=== PATIENT | female | born 1990 | race Caucasian/White ===

== ENCOUNTER 2016-11-14 13:37 | Emergency (ER) | payer OTHER ==
[~2016-11-14 13:37] MED LIST: BACTRIM DS1 TAB PO; BENADRYL25 MG PO; BUSPIRONE HCL10 MG PO; CITALOPRAM HYDR40 MG PO; CYMBALTA60 MG PO; DEPO-PROVER150 MG/ML; FLONASE AL50 MCG/ACT IN; HYDROCORTISONE0.5 % TOP; IBUPROFEN600 MG PO; IMITREX100 MG PO; KEFLEX750 MG PO; MELATONIN1 TA1 PO; NAPROXEN DR500 MG PO; NEURONTIN300 MG PO; ROXICODONE5 MG PO; SMZ-TMP DS1 TAB PO; TYLENOL325 MG PO; VITAMIN B COMPLE1; ZANAFLEX4 M1 PO; ZYRTEC-D ALLERG1 TAB PO
--- NOTE | 2016-11-14 17:19 | DIAGNOSTIC IMAGING REPORT ---
PROCEDURE: CT ABDOMEN/PELVIS W/O CONTRAST INDICATION: Left flank pain and hematuria. TECHNIQUE: Noncontrast axial images with sagittal and coronal reformations. COMPARISON: None. FINDINGS: ABDOMEN: Kidneys and ureters are normal. No evidence of urinary tract calculus or obstruction. Gallbladder, liver, spleen, pancreas, and aorta are normal. Bowel pattern is normal, including appendix. PELVIS: Uterus and adnexal structures are normal. Bilateral surgical tubal ligation clips. No evidence of free fluid. IMPRESSION: 1. Status post tubal ligation. 2. Normal kidneys and ureters. No evidence of urinary tract obstruction or calculus. 3. Otherwise negative CT abdomen and pelvis. 4. Findings discussed with ISAIAH Mann. All CT scans at this facility use dose modulation, iterative reconstruction, and/or weight-based dosing when appropriate to reduce radiation dose to as low as reasonably achievable.
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
--- NOTE | 2016-11-14 17:22 | ED ORDER SUMMARY ---
..... Patient: CONSUELO KEVIN OrderSheet [facility] VisitID: [id number] [address] [place] [address] 26y, F Registration Date/Time: 11/14/2016 ORDER SHEET Weight: 99.7 kg Allergies: Abilify, Amitriptyline, Baclofen, Certain paper tapes, Compazine, Food allergies to apple, banana, avocado, Haldol, morphine, Seasonal, Tramadol GENERAL ORDERS: UA-Culture if indicated Urgent (14:10 11/14/2016 EKoroleva P.A.-C) (Ack 14:11 LNations ER Tech1) (14:27 ALawrence ER Tech1) Urine Urgent (14:10 11/14/2016 EKoroleva P.A.-C) (Ack 14:11 LNations ER Tech1) (14:27 ALawrence ER Tech1) CT Abd/Pel wo Cont Urgent (14:46 11/14/2016 EKoroleva P.A.-C) (Ack 14:52 LNations ER Tech1) (16:10 RFay) CBC w Diff Urgent (14:46 11/14/2016 EKoroleva P.A.-C) (Ack 14:52 LNations ER Tech1) (17:05 ALawrence ER Tech1) CMP Urgent (14:46 11/14/2016 EKoroleva P.A.-C) (Ack 14:53 LNations ER Tech1) (17:05 ALawrence ER Tech1) MEDICATION ORDERS: Percocet PO 5/325 mg (HIGH ALERT MEDICATION, NOW) (14:47 11/14/2016 EKoroleva P.A.-C) (15:10 EBonham) IV FLUIDS: ORDER SHEET NOTES: [Electronically signed by Earline Sahu (17:29 11/14/2016)] [Electronically signed by Cee Segura P.A.-C (18:42 11/14/2016)] [Electronically locked/signed by Earline Sahu (17:29 11/14/2016)]
--- NOTE | 2016-11-14 17:22 | ED ORDER SUMMARY ---
..... Patient: CONSUELO KEVIN OrderSheet [facility] VisitID: [id number] [address] [place] [address] 26y, F Registration Date/Time: 11/14/2016 ORDER SHEET Weight: 99.7 kg Allergies: Abilify, Amitriptyline, Baclofen, Certain paper tapes, Compazine, Food allergies to apple, banana, avocado, Haldol, morphine, Seasonal, Tramadol GENERAL ORDERS: UA-Culture if indicated Urgent (14:10 11/14/2016 EKoroleva P.A.-C) (Ack 14:11 LNations ER Tech1) (14:27 ALawrence ER Tech1) Urine Urgent (14:10 11/14/2016 EKoroleva P.A.-C) (Ack 14:11 LNations ER Tech1) (14:27 ALawrence ER Tech1) CT Abd/Pel wo Cont Urgent (14:46 11/14/2016 EKoroleva P.A.-C) (Ack 14:52 LNations ER Tech1) (16:10 RFay) CBC w Diff Urgent (14:46 11/14/2016 EKoroleva P.A.-C) (Ack 14:52 LNations ER Tech1) (17:05 ALawrence ER Tech1) CMP Urgent (14:46 11/14/2016 EKoroleva P.A.-C) (Ack 14:53 LNations ER Tech1) (17:05 ALawrence ER Tech1) MEDICATION ORDERS: Percocet PO 5/325 mg (HIGH ALERT MEDICATION, NOW) (14:47 11/14/2016 EKoroleva P.A.-C) (15:10 EBonham) IV FLUIDS: ORDER SHEET NOTES: [Electronically signed by Earline Sahu (17:29 11/14/2016)] [Electronically signed by Cee Segura P.A.-C (18:42 11/14/2016)] [Electronically locked/signed by Earline Sahu (17:29 11/14/2016)]
--- NOTE | 2016-11-14 18:42 | ED MED RECONCILIATION SUMMARY ---
Patient: CONSUELO KEVIN Medication Reconciliation Report [facility] VisitID: [id number] [address] [place] [address] 26y, F Registration Date/Time: 11/14/2016 Weight: 99.7 kg Height/Length: 67 in. BMI: 34.5 ALLERGIES: Abilify, Amitriptyline, Baclofen, Certain paper tapes, Compazine, Food allergies to apple, banana, avocado, Haldol, morphine, Seasonal, Tramadol The patient's Home Medications are listed below: THE FOLLOWING MEDICATIONS NEED TO BE RECONCILED: BusPIRone HCl Oral Citalopram Hydrobromide Oral Cymbalta Oral Gabapentin Oral TiZANidine HCl Oral The source(s) of the original Home Medication information: Not obtained. The following Medications were given to the patient in the Emergency Department: Percocet [PO] PO 1 tab, administered: 11/14/2016 3:10:00 PM The following Medications were prescribed to the patient: Hydrocodone/APAP 5mg / 325mg: take 1 orally every 6 hours as needed for pain -- Cee Segura, PJinAJin-C
--- NOTE | 2016-11-14 18:42 | ED MAR SUMMARY ---
..... Medication Administration Record [facility] [address] [place] [address] Patient: CONSUELO KEVIN Visit ID: [id number] 26y, F Weight: 99.7 kg Height/Length: 67 in BMI: 34.5 ALLERGIES: Abilify, Amitriptyline, Baclofen, Certain paper tapes, Compazine, Food allergies to apple, banana, avocado, Haldol, morphine, Seasonal, Tramadol Given 15:10 11/14/2016 Earline Sahu, Medication Administered: PERCOCET [PO] (OXYCODONE-ACETAMINOPHEN), Dose: 1 tab 5/325 mg Tablets PO. Medication Ordered: Percocet PO 5/325 mg (HIGH ALERT MEDICATION, NOW).
--- NOTE | 2016-11-14 18:42 | ED MED RECONCILIATION SUMMARY ---
Patient: CONSUELO KEVIN Medication Reconciliation Report [facility] VisitID: [id number] [address] [place] [address] 26y, F Registration Date/Time: 11/14/2016 Weight: 99.7 kg Height/Length: 67 in. BMI: 34.5 ALLERGIES: Abilify, Amitriptyline, Baclofen, Certain paper tapes, Compazine, Food allergies to apple, banana, avocado, Haldol, morphine, Seasonal, Tramadol The patient's Home Medications are listed below: THE FOLLOWING MEDICATIONS NEED TO BE RECONCILED: BusPIRone HCl Oral Citalopram Hydrobromide Oral Cymbalta Oral Gabapentin Oral TiZANidine HCl Oral The source(s) of the original Home Medication information: Not obtained. The following Medications were given to the patient in the Emergency Department: Percocet [PO] PO 1 tab, administered: 11/14/2016 3:10:00 PM The following Medications were prescribed to the patient: Hydrocodone/APAP 5mg / 325mg: take 1 orally every 6 hours as needed for pain -- Cee Segura, PJinAJin-C
--- NOTE | 2016-11-14 18:42 | ED DISCHARGE INSTRUCTIONS ---
Patient: CONSUELO KEVIN General Instructions [facility] VisitID: [id number] [place] [address] 26y, F Registration Date/Time: 11/14/2016 Abdominal pain of unknown cause. Acute left flank pain INSTRUCTIONS Drink plenty of fluids. Warnings: Further evaluation is necessary. Prescription Medications: Hydrocodone/APAP 5mg / 325mg: take 1 orally every 6 hours as needed for pain Follow-up: Follow up with your doctor in three. ADDITIONAL INFORMATION Symptoms With Uncertain Cause [Adult] Based on the exam and any tests that were performed today, the exact cause of your symptoms is not certain. While your condition does not seem serious, the signs of a serious problem may take more time to appear. Therefore, it is important for you to watch for any new symptoms or worsening of your condition.Follow up with your doctor or this facility, as directed.A repeat physical exam or additional testing at a later time may uncover a cause for your symptoms that is not evident today. Home Care: Resume your usual activities and diet when this feels comfortable to do so. Follow Up with your doctor, or as advised by our staff.Contact your doctor sooner if your symptoms do not begin to improve in the next few days. [NOTE: If you had an x-ray, CT scan, ultrasound, or ECG (electrocardiogram), it will be reviewed by a specialist. You will be notified of any new findings that may affect your care.] Get Prompt Medical Attention if any of the following occur: Current symptoms get worse New symptoms appear Flank Pain[Uncertain Cause] The flank is the area between the upper abdomen and the back. Pain here is often related to the kidneyan infection or a kidney stone. Other causes of flank pain include spinal arthritis, pinched nerve from a disk injury, back muscle strain or spasm. The cause of your flank pain is not certain and further tests may be needed. Home Care: You may use acetaminophen (Tylenol) or ibuprofen (Motrin, Advil) to control pain, unless another medicine was prescribed. [NOTE: If you have chronic liver or kidney disease or ever had a stomach ulcer or GI bleeding, talk with your doctor before using these medicines.] If the cause of your pain is coming from the muscles, ice or heat may give relief. During the first two days after injury, apply an ICE PACK to the painful area for 20 minutes every 2-4 hours. This will reduce swelling and pain. HEAT (hot shower, hot bath or heating pad) works well for muscle spasm. You can start with ice, then switch to heat after two days. Some patients feel best alternating ice and heat treatments. Use the one method that feels the best to you. Follow Up with your doctor or as advised by our staff for further evaluation if your symptoms are not improving over the next few days. Return Promptly or contact your doctor if any of the following occur: Repeated vomiting Fever of 100.4F (38C) or higher, or as directed by your healthcare provider Increasing flank pain Pain that spreads to the front of the abdomen Dizziness, weakness or fainting Blood in your urine Burning with urination or frequent urination Increasing pain in the leg Numbness or weakness in the leg [place] Diet A bland diet is used for patients with an upset stomach. It consists of foods that are mild and easy to digest. It is better to eat small frequent meals rather than three large meals a day. BEVERAGES OK: Fruit juices, non-caffeinated teas and coffee, non-carbonated paul AVOID: Carbonated beverage, caffeinated tea and coffee, all alcoholic beverages BREAD OK: Refined white, wheat or rye bread, rivera or soda crackers, Kaycee toast, plain rolls, bagels AVOID: Whole-grain bread CEREAL OK: Refined cereals: cooked or ready to eat AVOID: Whole grain cereals and granola, or those containing bran, seeds or nuts DESSERTS OK: Peanut butter and all others except those to "avoid" AVOID: Chocolate, cocoa, coconut, popcorn, nuts, seeds, jam, marmalade FRUITS OK: Canned, cooked, frozen or fresh fruits without seeds or tough skin AVOID: Olives, skin and seeds of fruit MEATS OK: All fresh or preserved meat, fish and fowl AVOID: Any that are prepared with those spices to "avoid" CHEESE & EGGS OK: Eggs, cottage cheese, cream cheese, other cheeses AVOID: All cheeses made with those spices to "avoid" POTATOES & PASTA OK: Potato, rice, macaroni, noodles, spaghetti AVOID: None SOUPS OK: All soups without heavy seasoning AVOID: Soups made with those spices to "avoid" VEGETABLES OK: Canned, cooked, fresh or frozen mildly flavored vegetables without seeds, skins or coarse fiber AVOID: Vegetables prepared with those spices to "avoid"; skin and seeds of vegetables and those with coarse fiber SPICES OK: Salt, lemon and [place] juice, vinegar, all extracts, antwon, cinnamon, thyme, mace, allspice, paprika AVOID: Butler powder, cloves, pepper, seed spices, garlic, gravy pickles, highly seasoned salad dressings You have been given the following additional information: Symptoms With Uncertain Cause Flank Pain, Uncertain Cause Diet, [place] (Adult) (Electronically signed by Cee Segura P.A.-C 11/14/2016 18:42)
--- NOTE | 2016-11-14 18:42 | ED MAR SUMMARY ---
..... Medication Administration Record [facility] [address] [place] [address] Patient: CONSUELO KEVIN Visit ID: [id number] 26y, F Weight: 99.7 kg Height/Length: 67 in BMI: 34.5 ALLERGIES: Abilify, Amitriptyline, Baclofen, Certain paper tapes, Compazine, Food allergies to apple, banana, avocado, Haldol, morphine, Seasonal, Tramadol Given 15:10 11/14/2016 Earline Sahu, Medication Administered: PERCOCET [PO] (OXYCODONE-ACETAMINOPHEN), Dose: 1 tab 5/325 mg Tablets PO. Medication Ordered: Percocet PO 5/325 mg (HIGH ALERT MEDICATION, NOW).
== END 2016-11-14 17:28 | disposition home or self-care (01) ==
LOC: ED SRH 13:37
DX: R10.32 Left lower quadrant pain (principal); R31.9 Hematuria, unspecified; Z79.899 Other long term (current) drug therapy; Z88.5 Allergy status to narcotic agent; Z88.8 Allergy status to other drugs, medicaments and biological substances; Z91.018 Allergy to other foods
CPT/HCPCS: 90004; 90074; 90100; 93070; 95059

== ENCOUNTER 2016-12-04 16:59 | Emergency (ER) | payer OTHER ==
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
--- NOTE | 2016-12-04 18:32 | ED ORDER SUMMARY ---
..... Patient: CONSUELO KEVIN OrderSheet [facility] VisitID: [id number] [place] [address] 26y, F Registration Date/Time: 12/04/2016 ORDER SHEET Weight: 99.7 kg (stated) Allergies: Abilify, Amitriptyline, Baclofen, Certain paper tapes, Compazine, Food allergies to apple, banana, avocado, Haldol, morphine, Seasonal, Tramadol GENERAL ORDERS: MEDICATION ORDERS: Toradol IM 60 mg (NOW) (18:30 12/04/2016 Sathish A.R.N.P.) (Ack 18:35 Dafne R.N.) (18:39 Dafne R.N.) IV FLUIDS: ORDER SHEET NOTES: [Electronically signed by Lisa Rae R.N. (19:05 12/04/2016)] [Electronically signed by Thelma Harrell A.R.N.P. (19:18 12/04/2016)] [Electronically locked/signed by Lisa Rae R.N. (19:05 12/04/2016)]
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
--- NOTE | 2016-12-04 18:32 | ED ORDER SUMMARY ---
..... Patient: CONSUELO KEVIN OrderSheet [facility] VisitID: [id number] [place] [address] 26y, F Registration Date/Time: 12/04/2016 ORDER SHEET Weight: 99.7 kg (stated) Allergies: Abilify, Amitriptyline, Baclofen, Certain paper tapes, Compazine, Food allergies to apple, banana, avocado, Haldol, morphine, Seasonal, Tramadol GENERAL ORDERS: MEDICATION ORDERS: Toradol IM 60 mg (NOW) (18:30 12/04/2016 Sathish A.R.N.P.) (Ack 18:35 Dafne R.N.) (18:39 Dfane R.N.) IV FLUIDS: ORDER SHEET NOTES: [Electronically signed by Lisa Rae R.N. (19:05 12/04/2016)] [Electronically signed by Thelma Harrell A.R.N.P. (19:18 12/04/2016)] [Electronically locked/signed by Lisa Rae R.N. (19:05 12/04/2016)]
--- NOTE | 2016-12-04 19:18 | ED MED RECONCILIATION SUMMARY ---
Patient: CONSUELO KEVIN Medication Reconciliation Report [facility] VisitID: [id number] [place] [address] 26y, F Registration Date/Time: 12/04/2016 Weight: 99.7 kg Height/Length: 67 in. BMI: 34.5 ALLERGIES: Abilify, Amitriptyline, Baclofen, Certain paper tapes, Compazine, Food allergies to apple, banana, avocado, Haldol, morphine, Seasonal, Tramadol The patient's Home Medications are listed below: THE FOLLOWING MEDICATIONS NEED TO BE RECONCILED: BusPIRone HCl Oral Citalopram Hydrobromide Oral Cymbalta Oral Gabapentin Oral TiZANidine HCl Oral The source(s) of the original Home Medication information: patient The following Medications were given to the patient in the Emergency Department: Toradol [IM] IM 60 mg, administered: 12/04/2016 6:39:00 PM The following Medications were prescribed to the patient: Naproxen 500 mg tablets: take 1 orally every 12 hours as needed for pain. Dispense twenty (20). No refills. -- Thelma Harrell, A.R.N.P. Flexeril 10 mg: Take 1 orally every 8 hours as needed for muscle spasm. Dispense twenty (20). No refills. Substitution is permissible. -- Thelma Harrell, A.R.N.P. [place] 5 mg / 325 mg tablets: take 1 orally every 6 hours as needed for pain. Dispense five (5). No refill. -- Thelma Harrell, A.R.N.P.
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
--- NOTE | 2016-12-04 19:18 | ED MED RECONCILIATION SUMMARY ---
Patient: CONSUELO KEVIN Medication Reconciliation Report [facility] VisitID: [id number] [place] [address] 26y, F Registration Date/Time: 12/04/2016 Weight: 99.7 kg Height/Length: 67 in. BMI: 34.5 ALLERGIES: Abilify, Amitriptyline, Baclofen, Certain paper tapes, Compazine, Food allergies to apple, banana, avocado, Haldol, morphine, Seasonal, Tramadol The patient's Home Medications are listed below: THE FOLLOWING MEDICATIONS NEED TO BE RECONCILED: BusPIRone HCl Oral Citalopram Hydrobromide Oral Cymbalta Oral Gabapentin Oral TiZANidine HCl Oral The source(s) of the original Home Medication information: patient The following Medications were given to the patient in the Emergency Department: Toradol [IM] IM 60 mg, administered: 12/04/2016 6:39:00 PM The following Medications were prescribed to the patient: Naproxen 500 mg tablets: take 1 orally every 12 hours as needed for pain. Dispense twenty (20). No refills. -- Thelma Harrell, A.R.N.P. Flexeril 10 mg: Take 1 orally every 8 hours as needed for muscle spasm. Dispense twenty (20). No refills. Substitution is permissible. -- Thelma Harrell, A.R.N.P. [place] 5 mg / 325 mg tablets: take 1 orally every 6 hours as needed for pain. Dispense five (5). No refill. -- Thelma Harrell, A.R.N.P.
--- NOTE | 2016-12-04 19:18 | ED MAR SUMMARY ---
..... Medication Administration Record [facility] [address] [place] [address] Patient: CONSUELO KEVIN Visit ID: [id number] 26y, F Weight: 99.7 kg Height/Length: 67 in BMI: 34.5 ALLERGIES: Abilify, Amitriptyline, Baclofen, Certain paper tapes, Compazine, Food allergies to apple, banana, avocado, Haldol, morphine, Seasonal, Tramadol Given 18:39 12/04/2016 Lisa Rae R.N. Medication Administered: TORADOL [IM] (KETOROLAC TROMETHAMINE), Dose: 60 mg IM. Medication Ordered: Toradol IM 60 mg (NOW).
--- NOTE | 2016-12-04 19:18 | ED MAR SUMMARY ---
..... Medication Administration Record [facility] [address] [place] [address] Patient: CONSUELO KEVIN Visit ID: [id number] 26y, F Weight: 99.7 kg Height/Length: 67 in BMI: 34.5 ALLERGIES: Abilify, Amitriptyline, Baclofen, Certain paper tapes, Compazine, Food allergies to apple, banana, avocado, Haldol, morphine, Seasonal, Tramadol Given 18:39 12/04/2016 Lisa Rae R.N. Medication Administered: TORADOL [IM] (KETOROLAC TROMETHAMINE), Dose: 60 mg IM. Medication Ordered: Toradol IM 60 mg (NOW).
== END 2016-12-04 19:03 | disposition home or self-care (01) ==
LOC: ED SRH 16:59
DX: S39.012A Strain of muscle, fascia and tendon of lower back, initial encounter (principal); V53.5XXA Driver of pick-up truck or van injured in collision with car, pick-up truck or van in traffic accident, initial encounter; Y93.89 Activity, other specified; Y99.8 Other external cause status; Y92.410 Unspecified street and highway as the place of occurrence of the external cause; Z79.899 Other long term (current) drug therapy